=== PATIENT | male | born 2000 | race Caucasian/White ===

== ENCOUNTER → 2019-10-21 11:14 | Outpatient (CLI) | payer BC, SELFPAY ==
[2019-10-21 12:03] LABS: Basophils # 0.1 K/mm3 (0-0.2); Basophils % 0.9 % (0.1-2.0); Eosinophils # 0.3 K/mm3 (0.0-0.4); Eosinophils % 4.4 % (0.1-12.0); Hematocrit 41.1 % (42.0-52.0); Hemoglobin 14.3 g/dL (14.1-18.0); Lymphocytes # 1.9 K/mm3 (0.7-4.5); Lymphocytes % 28.3 % (10-50); Mean Corpuscular HGB Conc 34.7 g/dL (31.8-35.4); Mean Corpuscular Hemoglobin 30.9 pg (27.0-31.2); Mean Platelet Volume 6.9 fl (7.4-10.4); Monocytes # 0.5 K/mm3 (0.1-1.0); Monocytes % 6.9 % (1.7-9.3); Neutrophils % 59.5 % (37.0-80.0); Platelet Count 308 K/mm3 (142-424); Red Blood Count 4.62 M/mm3 (4.60-6.20); Red Cell Distribution Width 12.5 % (11.5-17.5); White Blood Count 6.6 K/mm3 (4.5-13.0)
[2019-10-21 14:02] LABS: Anion Gap 17.4 mEq/L (5-15); Blood Urea Nitrogen 12 mg/dl (9-20); Calcium 10.2 mg/dl (8.4-10.2); Carbon Dioxide 30 mmol/L (22.0-30.0); Chloride 99 mmol/L (98-107); Estimated Glomerular Filt Rate 172 ml/min (>60); GFR (African American) 208 ML/MIN (>60); Glucose 104 mg/dl (74-100); Potassium 4.4 mmoL/L (3.5-5.1); Sodium 142 mmol/L (136-145)
[2019-10-21 14:19] LABS: Coronavirus 19 IgG Antibody Negative (Negative); Coronavirus 19 IgM Antibody Negative (Negative)
== END ==
LOC: LAB 11:15
PROVIDERS: Visit Provider Surgery
DX: L05.91 Pilonidal cyst without abscess (principal)
CPT/HCPCS: 36415; 80048; 85025; 86328

== ENCOUNTER 2019-10-23 09:52 | Day surgery (SDC) | payer BC, SELFPAY ==
[2019-10-23] VITALS (13 sets, daily range): BP systolic 109–162; BP diastolic 47–114; PULSE 79–114; RESP 13–19; TEMP 36.3–36.7; O2SAT 95–98; BMI 28.8
--- NOTE | 2019-10-23 13:19 | HMH.ANESCL ---
[facility] Anesthesia Checklist - Patient Identification Patient Identification: Arm Band, Verbal (Name & ) - Structural Data Admitted From: Home Planned Operative Procedure/s: [email or web address].abcess Consent for Planned Operative Procedure(s) Verified: Yes Verified Documents: History and Physical - NPO Status Verified Time NPO: 00:00 - Chart Verification Results Verified: CBC, BMP - Additional verifications Patient : No Anesthesia Reactions: No Hx Blood Transfusions: No Blood Transfusion Reaction: No Cephalosporin Allergy: No Previous Colonoscopy: No - Cardiovascular Assessment Heart Sounds: S1 & S2 Pulse Strength: Baseline Pulse Rhythm: Regular Peripheral Edema: No - Airway Assessment C-Spine Mobility Assessed: Yes TMJ Mobility Assessed: Yes Dentition: Good Dentition - Neurological Assessment Level of Consciousness: Awake, Alert, Appropriate Hx Seizures: No Numbness or tingling in extremities: No - Anesthesia Plan Anesthesia Risk discussed: Yes Anesthesia Plan: Verified ASA Class: II Anesthesia Type: General [facility] History I have reviewed the patient's past medical history: Yes Medical History: Denies:: Cancer, Diabetes Mellitus Type 1, Diabetes Mellitus Type 2, Internal Pacemaker, MRSA, Seizures *Have you ever received a pneumonia vaccine?: No *Have you received a flu vaccine this season?: No Other Medical History: Denies: Blood Transfusion Reaction Anesthesia experience/problems:: none Other Surgeries: Yes: Other. No: Pacemaker Amputation: No Fractures: No - *Social History Last grade of school completed: Some college Smoking Status: Never smoker Alcohol Intake: never Substance Use Type: denies use *Occupational Status:: student Housing: house Household Members: family *Travel in the last 8 weeks: None Family Hx:: No significant family history
--- NOTE | 2019-10-23 14:09 | HMH.OPNOTE ---
Date of procedure: 10/23/19 Pre-op Diagnosis:: Abscessed pilonidal cyst Post-op Diagnosis:: Same Procedure performed:: Incision and drainage of abscessed pilonidal cyst Surgeon:: Christophe Kuo MD [employer] SPECIALIST:: Ishan Montoya Anesthesia: LMA Estimated blood loss (mL): 5 Operative findings:: Abscessed pilonidal cyst with rightward displacement Tiny amount of purulent fluid Small amount of hair noted in the cavity Note: Patient is 2 years status post incision and drainage of abscessed pilonidal cyst with leftward displacement. Operative note:: After informed consent was obtained the patient was taken to the operating room and placed in the supine position. General anesthesia with laryngeal mask airway was achieved. He was transferred to the left lateral decubitus position. His buttock cleft region was prepped and draped in a sterile fashion. After infiltration of local anesthetic an elliptical incision was made around the central portion of the abscess. The deep subcutaneous tissue was transected with electrocautery. A small amount of purulence was encountered. A small amount of encapsulated hair was also removed. The entire wound cavity was evacuated of contents and irrigated. The wound was then packed with a portion of a 4 x 4 that was then moistened with 1% lidocaine. Dressings were applied and the patient was transferred to recovery in stable condition. Condition: stable Disposition: PACU Specimens:: None Complications:: No immediate
--- NOTE | 2019-10-23 14:18 | HMH.ANESI ---
[facility] Anesthesia Record Part I Intake, IV Amount: 500 Estimated blood loss (mL): 5 Urine output (mL): 0 Blood Pressure: 115/76 SaO2: 95 Pulse Rate: 79 Respiratory Rate: 16 Temperature: 97.3 F Patient is:: Drowsy, Stable Stable to PACU at:: 14:15
--- NOTE | 2019-10-24 08:04 | HMH.ANESII ---
[facility] Anesthesia Record Part II Discharge Time: 14:57 Destination: Surgical Day Care (OP Surgery) PACU nurse assessment reviewed?: Yes Patient Condition:: Good Anesthesia Complications:: None Swallowing reflex intact?: Yes Cyanosis?: No Blood Pressure: 135/88 Pulse Rate: 91 Temperature: 97.3 F Mental Status: Alert & Oriented Pain level:: 2 Nausea and/or vomitting:: None Intake, IV Amount: 0
[2019-10-24 08:06] VITALS: BP 135/88; PULSE 91; TEMP 36.3
== END 2019-10-23 15:30 | disposition home or self-care (01) ==
LOC: OR 09:55
PROVIDERS: Visit Provider Surgery
PROC: (CPT 10081; principal; 2019-10-23 11:30)
DX: L05.01 Pilonidal cyst with abscess (principal); Z87.2 Personal history of diseases of the skin and subcutaneous tissue
CPT/HCPCS: 10081; 96374; J1956; J2405